=== PATIENT | female | born 1985 | race Caucasian/White ===

== ENCOUNTER 2024-06-02 14:36 | Outpatient (AMB) | payer BC, SELFPAY ==
--- NOTE | 2024-06-02 14:19 | A.OFFPC_ITS ---
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 Patient would like to discuss lack of sleeping and also has a concern for her anxiety. Brim Blocker Required: No Accompanied by: Self / Same As Patient Allergies No Known Allergies Allergy (Verified 06/02/24 15:08) Medication List - Last Reconciled 06/04/24 by Tracie Clinton MD clotrimazole-betamethasone 1-0.05 % 1 appl topical BID 2 weeks lorazepam (Ativan) 1 mg PO ONCE PRN 30 days nifedipine ER 60 mg PO DAILY omeprazole 20 mg PO DAILY phentermine 15 mg PO BID 90 days propranolol 10 mg PO TID PRN sulfamethoxazole-trimethoprim 800-160 mg (Bactrim DS) 1 tab PO BID Tobacco use date assessed: 06/02/24 Dental Screening Dental Screen Date: 06/02/24 Did you have a dental visit in the last 12 months?: No Did you have a dental problem in the last 6 months where you did not have access to dental care?: No Was dental information given to patient?: Yes HPI HPI Comments History of Present Illness Details 39 year old female with past medical his tory of hypertension, hyperlipidemia, hyperglycemia, anxiety, sciatica presenting for physical exam. CV: On nifedipine 30mg daily. Denies headaches, dizziness, vision change. Denies lower extremity swelling BH: Anxiety. Her mother in law is no longer living with them. 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 She is going to return to work. She continues to have anxiety, mostly at night which prevents her from sleeping. Says her social anxiety has been very notable recently Recurrent issues with frequent ear infections, pressure. 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 She did not want to follow up with genetic Obesity: has done well with phentermine ROS see HPI PHYSICAL EXAM: GENERAL: Alert and oriented x 3. NAD EYES: EOMI. Anicteric. HENT: Moist mucous membranes. No scleral icterus. No cervical lymphadenopathy. LUNGS: Clear to auscultation bilaterally. CARDIOVASCULAR: Regular rate and rhythm. No murmur. No JVD. ABDOMEN: Soft, non-tender +bs EXTREMITIES: No edema. Non-tender. SKIN: No rashes or lesions. Warm. NEUROLOGIC: No focal neurological deficits. CN II-XII grossly intact PSYCHIATRIC: Cooperative. Appropriate mood and affect [facility] Medical History (Updated 06/04/24 @ 09:12 by Tracie Clinton MD) Weight gain Stress Obesity, Class I, BMI 30-34.9 Hyperlipidemia HTN (hypertension) Elevated glucose Surgical History Hx of tonsillectomy Family History Father Hx of CABG Maternal Grandmother Breast cancer Maternal Grandmother Lung cancer Maternal Grandfather Lung cancer Social History Household Members: Spouse Housing: House (spouse) 75 years or older and lives alone: No Alcohol intake: current Alcohol intake frequency: a few times a month Alcohol type: beer, wine and hard liquor Patient Tobacco Use Status: Former Tobacco user Tobacco use type: Cigarette e-Cigarette/Vaping Use: Never Used Use of substances other than those prescribed or required for medical reasons: No Substance Use Type: Marijuana Have you been hit, kicked, punched, or otherwise hurt by someone within the past year? If so, by whom?: No Do you feel safe in your current relationship?: Yes Is there a partner from a previous relationship who is making you feel unsafe now?: No Are you made to feel afraid or neglected: No service: No Current occupational status: unemployed Cognitive needs: No Hearing needs: No Vision needs: No Questionnaire PHQ-9 Over the last 2 weeks, how often have you been bothered by any of the following problems? 1. Little interest or pleasure in doing things: not at all 2. Feeling down, depressed, or hopeless: not at all 3. Trouble falling or staying asleep, or sleeping too much: more than half the days 4. Feeling tired or having little energy: not at all 5. Poor appetite or overeating: not at all 6. Feeling bad about yourself - or that you are a failure or have let yourself or your family down: not at all 7. Trouble concentrating on things, such as reading the newspaper or watching television: not at all 8. Moving or speaking so slowly that other people could have noticed. Or the opposite - being so fidgety or restless that you have been moving around a lot more than usual: not at all 9. Thoughts that you would be better off or of hurting yourself in some way: not at all Total score: 2 Depression Screening Interpretation: Negative (NEG) Depression Screening Done: Yes 94124 - PHQ-9 Billing: Yes Source: Developed by Drs. Keith Sloan, Constance Mauro, Mark Cedeño and colleagues, with an educational briana from [employer]. Thrive Questionnaire Date Thrive assessed: 06/02/24 I am a: Patient What is your living situation today?: I have a steady place to live Within the past 12 months, did the food you bought not last and you didn't have the money to get more?: Never true Within the past 12 months, did you worry whether your food would run out before you got money to buy more?: Never true Do you have trouble paying for medicines?: No Do you have trouble getting transportation to medical appointments?: No Do you have trouble paying your heating and electricity bill?: No Do you have trouble taking care of your child, family member or friend?: No Do you have trouble with day-to-day activities such as bathing, preparing meals, shopping, managing finances, etc.?: No Are you currently unemployed and looking for a job?: No Are you interested in more education?: No Please select the resources that you would like help with: None Currently or been in a relationship where the following occur: No concerns reported THRIVE Score: 0 SPENCER-7 AMB Questionnaire SPENCER-7 Date SPENCER - 7 assessed: 06/02/24 Feeling nervous, anxious, or on edge: 2 = More than half the days Not being able to stop or control worryin = Not at all Worrying too much about different things: 0 = Not at all Trouble relaxin = Not at all Being so restless that it is hard to sit still: 0 = Not at all Becoming easily annoyed or irritable: 0 = Not at all Feeling afraid as if something awful might happen: 0 = Not at all Total SPENCER-7 score (0-4 normal; 5-9 mild; 10-14 moderate; 15-21 severe): 2 Source: Developed by Drs. Keith Sloan, Constance Mauro, Mark Cedeño and colleagues, with an educational briana from [employer]. SPENCER-7 Assessment Billing SPENCER-7 Assessment Tool: SPENCER-7 Assessment 41596 Physical exam (Primary Care) Vital Signs: Last Vital Signs Pulse 105 H 06/02/24 15:02 BP 136/86 06/02/24 15:02 Pulse Ox 98 06/02/24 15:02 Oxygen Delivery Method Room Air 06/02/24 15:02 BMI result Body Mass Index 32.1 Tobacco/Smoking Status: Tobacco use Status Tobacco use date assessed 06/02/24 06/02/24 15:15 Patient Tobacco Use Status Former Tobacco user 06/02/24 15:15 Tobacco use type Cigarette 06/02/24 15:15 e-Cigarette/Vaping Use Never Used 06/02/24 15:15 PHQ-9: PHQ-9 Score PHQ-9: Total score 2 06/04/24 09:12 Depression Screening Interpretation: Negative (NEG) Thrive Assessment: Date of Thrive Assessment Date Thrive assessed 06/02/24 06/02/24 15:18 Currently or been in a relationship where the following occur: No concerns reported Assessment and Plan Assessment & Plan (1) Physical exam: Comment: Preventive measures appropriate for age reviewed Code(s): Z00.00 - Encounter for general adult medical examination without abnormal findings (2) HTN (hypertension): Code(s): I10 - Essential (primary) hypertension Qualifiers: Hypertension type: primary hypertension Qualified Code(s): I10 - Essential (primary) hypertension (3) Hyperlipidemia: Code(s): E78.5 - Hyperlipidemia, unspecified Qualifiers: Hyperlipidemia type: mixed hyperlipidemia Qualified Code(s): E78.2 - Mixed hyperlipidemia (4) Elevated glucose: Code(s): R73.09 - Other abnormal glucose Orders: Referrals Dermatology Referral L91.8 - Other hypertrophic disorders of the skin Ear/Nose/Throat Referral H66.90 - Otitis media, unspecified, unspecified ear Medications: New clotrimazole-betamethasone 1-0.05 % 1 appl topical BID 45 grams 0RF 2 weeks omeprazole 20 mg PO DAILY 90 caps 3RF sulfamethoxazole-trimethoprim 800-160 mg (Bactrim DS) 1 tab PO BID 14 tabs 0RF nifedipine ER 60 mg PO DAILY 90 tabs 3RF propranolol 10 mg PO TID PRN 90 tabs 3RF social anxiety lorazepam (Ativan) 1 mg PO ONCE PRN 30 tabs 0RF anxiety 30 days Refilled phentermine must administer 2 hours after breakfast 15 mg PO BID 180 caps 0RF 90 days Coding Level of Care Code Est Pt Level 4 (67987) Est Pt Prev Care 40-64y(49652) Diagnoses Physical exam Z00.00 Primary hypertension I10 Hypertension type: primary hypertension Mixed hyperlipidemia E78.2 Hyperlipidemia type: mixed hyperlipidemia Elevated glucose R73.09 Additional Codes SPENCER-7 Assessment Billing - SPENCER-7 Assessment Tool: SPENCER-7 Assessment 47755 ([id number])
[2024-06-02 15:02] VITALS: BP 136/86; PULSE 105; O2SAT 98; BMI 32.1
== END 2024-06-02 17:01 | disposition home or self-care (01) ==
PROVIDERS: PCP Internal Medicine; Visit Provider Internal Medicine
DX: Z00.00 Encounter for general adult medical examination without abnormal findings (principal); I10 Essential (primary) hypertension; E78.2 Mixed hyperlipidemia; R73.09 Other abnormal glucose
CPT/HCPCS: 99386; 99396

== ENCOUNTER → 2024-12-08 08:54 | Outpatient (BNVA) | payer BC, SELFPAY | PROVIDERS: PCP Internal Medicine; Visit Provider Internal Medicine | DX: I10 Essential (primary) hypertension (principal); E78.2 Mixed hyperlipidemia | CPT/HCPCS: 96127 ==

== ENCOUNTER 2025-05-02 10:54 | Outpatient (AMB) | payer BC, SELFPAY ==
--- NOTE | 2025-05-02 11:03 | A.OFFPC_ITS ---
Vital Signs 05/02/25 11:05 05/02/25 11:11 Height 4 ft 11 in Weight 160 lb 2 oz BMI 32.3 BP 126/100 H 124/98 H Blood Pressure Location Lt brachial Lt brachial Position Sitting Sitting Respiration 14 Pulse 91 Pulse Source Pulse Oximeter Temp 99 F Temp Source Oral Pulse Oximetry (%) 98 Oxygen Delivery Method Room Air Intake Visit Reasons: ED Follow-up /Felix Intake Note: Emergency room follow up Allergies No Known Allergies Allergy (Verified 05/02/25 11:03) Medication List - Last Reconciled 05/02/25 by Yoana Whitt PA-C lorazepam (Ativan) 1 mg PO DAILY PRN 10 days multivitamin 1 tab PO DAILY nifedipine ER 60 mg PO DAILY omeprazole 20 mg PO DAILY phentermine 15 mg PO BID 90 days propranolol 10 mg PO TID PRN temazepam 15 mg (2 x 7.5 mg) PO BEDTIME PRN Tobacco use date assessed: 05/02/25 Dental Screening Dental Screen Date: 06/02/24 Did you have a dental visit in the last 12 months?: No Did you have a dental problem in the last 6 months where you did not have access to dental care?: No Was dental information given to patient?: Patient declined HPI ED Follow-up /Felix HPI Details Patient is a 40-year-old female with past medical history of hypertension, hyperlipidemia, hyperglycemia, anxiety, sciatica presenting for an ER follow up. On 04/30/2025 she presented to the emergency room with 3 hours of severe abd ominal pain. She says that the pain had woke her up in it was about a 9/10. The pain was so severe it made her feel lightheaded and nauseous. . -She had a CT of the abdomen and pelvis which was overall unremarkable however she did have a left corpus luteal cyst measuring 1 cm, multiple physiologic cysts within the right ovary and trace pelvic fluid. She was noted to have a large stool burden within the colon. No obstruction or lymphadenopathy. -She had an upper abdominal ultrasound w [facility] did show mildly echogenic liver likely representing fatty liver. She was also noted to have cholelithiasis but no evidence of acute cholecystitis. -Her CMP did show a mildly elevated ALT at 53 and mild hypokalemia at 3.3 otherwise WNL. CBC was unremarkable. She had slight bacteria noted on her UA but had a negative culture. She was discharged from the ER and recommended to follow up with OBGYN and PCP for possible referral to General surgery regarding the cholelithiasis. She states today that she is still having significant right-sided abdominal pain. It is not worse with eating but it has decreased her appetite because she is at times nauseous with this. She states that movement and touching her upper abdomen causes pain. She is not having any back pain and has not noticed any rashes. She states that this pain is just making her very uncomfortable. She has not vomited and denies any diarrhea. She states that at the ER they did tell her she was a little constipated but she is still having regular bowel movements. No improvement of pain with bowel movements. Pain is constantly there but exacerbated with certain positions. She has not eaten any foods with fat and then because she is terrified of making this worse. Denies prior abdominal surgeries, recent travel, recent antibiotic use. CV: On nifedipine 60mg daily. Blood pressure today elevated at 124/98. She states that she is also on propranolol as needed and this abdominal pain is increasing her anxiety. She states that when she takes it propranolol her blood pressure does improve. She has a cuff at home and states that she is going to monitor it. She forgot to take nifedipine yesterday and today. Denies headaches, dizziness, vision change. 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 [facility] Medical History (Updated 05/02/25 @ 11:25 by Yoana Whitt PA-C) Weight gain Stress Obesity, Class I, BMI 30-34.9 Hyperlipidemia HTN (hypertension) Elevated glucose Surgical History Hx of tonsillectomy Family History Father Hx of CABG Maternal Grandmother Breast cancer Maternal Grandmother Lung cancer Maternal Grandfather Lung cancer Social History (Updated 05/02/25 @ 11:13 by Julissa Castillo CMA) Household Members: Spouse Housing: House (spouse) Alcohol intake: current Alcohol intake frequency: a few times a month Alcohol type: beer, wine and hard liquor Patient Tobacco Use Status: Former Tobacco user Tobacco use type: Cigarette e-Cigarette/Vaping Use: Never Used Substance Use Type: Marijuana service: No Current occupational status: unemployed Cognitive needs: No Hearing needs: No Vision needs: No Questionnaire Thrive Questionnaire Date Thrive assessed: 12/03/24 I am a: Patient What is your living situation today?: I have a steady place to live Within the past 12 months, did the food you bought not last and you didn't have the money to get more?: Never true Within the past 12 months, did you worry whether your food would run out before you got money to buy more?: Never true Do you have trouble paying for medicines?: No Do you have trouble getting transportation to medical appointments?: No Do you have trouble paying your heating and electricity bill?: No Do you have trouble taking care of your child, family member or friend?: No Do you have trouble with day-to-day activities such as bathing, preparing meals, shopping, managing finances, etc.?: No Are you currently unemployed and looking for a job?: No Are you interested in more education?: No Please select the resources that you would like help with: None Currently or been in a relationship where the following occur: No concerns reported THRIVE Score: 0 AUDIT C Alcohol Use Questionnaire (AUDIT-C) 1. How often do you have a drink containing alcohol?: 2-3 times a week 2. How many drinks containing alcohol do you have on a typical day when you are drinking?: 1 or 2 3. How often do you have six or more drinks on one occasion?: Never Total Score: 3 SPENCER-7 AMB Questionnaire SPENCER-7 Date SPENCER - 7 assessed: 06/02/24 Source: Developed by Drs. Keith Sloan, Constance Mauro, Mark Cedeño and colleagues, with an educational briana from [employer]. Physical exam (Primary Care) Vital Signs: Last Vital Signs Temp 99 F 05/02/25 11:05 Pulse 91 05/02/25 11:05 Resp 14 05/02/25 11:05 BP 124/98 H 05/02/25 11:11 Pulse Ox 98 05/02/25 11:05 Oxygen Delivery Method Room Air 05/02/25 11:05 BMI result Body Mass Index 32.3 Tobacco/Smoking Status: Tobacco use Status Tobacco use date assessed 05/02/25 05/02/25 11:10 Patient Tobacco Use Status Former Tobacco user 05/02/25 11:13 Tobacco use type Cigarette 05/02/25 11:13 e-Cigarette/Vaping Use Never Used 05/02/25 11:13 Thrive Assessment: Date of Thrive Assessment Date Thrive assessed 12/03/24 05/02/25 11:03 Currently or been in a relationship where the following occur: No concerns reported Const Orientation/consciousness: patient oriented x3 HENMT Ears: hearing grossly normal bilaterally Neck Thyroid: Thyroid normal Lymphatic: no lymphadenopathy noted Resp Auscultation: clear to auscultation bilaterally Cardio Rate: regular rate Rhythm: regular rhythm Heart sounds: S1 normal heart sound present and S2 normal heart sound present GI Inspection: Yes normal to inspection Palpation (GI): Soft to palpation, Tenderness to palpation present (GI) in the RLQ and in the RUQ, Guarding due to palpation present (GI) in the RUQ and No Rebound tenderness present Auscultation: normoactive bowel sounds Rectal Exam - Female: deferred General: Yes no CVA tenderness Back/Spine/Pelvis Back: no CVA tenderness Skin General skin exam: no rashes or lesions noted Neuro General: patient oriented x3, gait normal and no focal motor deficits Coding Level of Care Code Est Pt Level 4 (06690) Complex EM visit Add On G2211 Diagnoses Cholelithiasis K80.20 Ovarian cyst N83.209 Elevated LFTs R79.89 RUQ abdominal pain R10.11 Primary hypertension I10 Hypertension type: primary hypertension Assessment & Plan Assessment & Plan (1) Cholelithiasis: Code(s): K80.20 - Calculus of gallbladder without cholecystitis without obstruction Category: Medical Plan: Urgent referral to General surgery (2) Ovarian cyst: Code(s): N83.209 - Unspecified ovarian cyst, unspecified side Category: Medical Plan: Following with gynecology (3) Elevated LFTs: Code(s): R79.89 - Other specified abnormal findings of blood chemistry Plan: We will recheck labs today (4) RUQ abdominal pain: Code(s): R10.11 - Right upper quadrant pain Category: Medical Plan: As listed above. Warning signs of abdominal pain that would require emergent medical treatment were discussed. Advised patient that if she worsens she should go back to the emergency room. (5) HTN (hypertension): Code(s): I10 - Essential (primary) hypertension Category: Medical Qualifiers: Hypertension type: primary hypertension Qualified Code(s): I10 - Essential (primary) hypertension Plan: Advised to take the nifedipine as directed and monitor blood pressures. She will let me know how they look the next few days. Orders: Orders Hepatitis C Antibody Today K80.20 - Calculus of gallbladder without cholecystitis without obstruction, N83.209 - Unspecified ovarian cyst, unspecified side, R79.89 - Other specified abnormal findings of blood chemistry Basic Metabolic Panel Today K80.20 - Calculus of gallbladder without cholecystitis without obstruction, N83.209 - Unspecified ovarian cyst, unspecified side Complete Blood Count Auto Diff Today K80.20 - Calculus of gallbladder without cholecystitis without obstruction, N83.209 - Unspecified ovarian cyst, unspecified side, R79.89 - Other specified abnormal findings of blood chemistry Hemoglobin A1c Today K80.20 - Calculus of gallbladder without cholecystitis without obstruction, N83.209 - Unspecified ovarian cyst, unspecified side, R73.01 - Impaired fasting glucose, R79.89 - Other specified abnormal findings of blood chemistry Liver Panel Today K80.20 - Calculus of gallbladder without cholecystitis without obstruction, N83.209 - Unspecified ovarian cyst, unspecified side, R79.89 - Other specified abnormal findings of blood chemistry Gamma Glutamyl Transpeptidase Today K80.20 - Calculus of gallbladder without cholecystitis without obstruction, N83.209 - Unspecified ovarian cyst, unspecified side, R79.89 - Other specified abnormal findings of blood chemistry Hepatitis B Surface Antigen Today K80.20 - Calculus of gallbladder without cholecystitis without obstruction, N83.209 - Unspecified ovarian cyst, unspec ified side, R79.89 - Other specified abnormal findings of blood chemistry Lipase Today R10.11 - Right upper quadrant pain Referrals General Surgery Referral K80.20 - Calculus of gallbladder without cholecystitis without obstruction Medications: New polyethylene glycol 3350 (Miralax) 17 grams PO BID PRN 238 grams 0RF constipation
[2025-05-02 11:05] VITALS: BP 126/100; PULSE 91; RESP 14; TEMP 37.2; O2SAT 98; BMI 32.3
[2025-05-02 11:11] VITALS: BP 124/98
== END 2025-05-02 11:36 | disposition home or self-care (01) ==
LOC: HO.HMCFM 10:54
PROVIDERS: PCP Internal Medicine; Visit Provider Physician Assistant
DX: K80.20 Calculus of gallbladder without cholecystitis without obstruction (principal); N83.209 Unspecified ovarian cyst, unspecified side; R79.89 Other specified abnormal findings of blood chemistry; R10.11 Right upper quadrant pain; I10 Essential (primary) hypertension

== ENCOUNTER 2025-05-02 11:29 | Outpatient (REF) | payer BC, SELFPAY ==
[2025-05-02 14:22] LABS: MANUAL DIFF FLAG NO
[2025-05-02 14:29] LABS: Basophils Percent Auto 0.7 % (0-2); Eosinophils Absolute Auto 0.1 X10*3/uL (0.0-0.4); Hematocrit 39.6 % (37.0-47.0); Imm Gran Abs Auto 0.01 X10*3/uL (0.00-0.03); Imm Gran Pct Auto 0.2 % (0.0-0.4); Lymphocytes Absolute Auto 2.2 X10*3/uL (1.2-4.9); Lymphocytes Percent Auto 35.7 % (20-40); Mean Corpuscular HGB Conc 32.8 g/dl (31.0-35.0); Mean Corpuscular Hemoglobin 29.8 pg (27.0-33.0); Mean Corpuscular Volume 90.8 fL (80.0-98.0); Mean Platelet Volume 12.2 fL (9.4-12.3); Monocytes Absolute Auto 0.5 X10*3/uL (0.1-1.2); Monocytes Percent Auto 7.5 % (2-11); Neutrophils Absolute Auto 3.3 x10*3/uL (2.0-8.3); Neutrophils Percent Auto 54.9 % (45-73); Platelet Count 229 X10*3/uL (160-400); Red Blood Count 4.36 X10*6/uL (4.20-5.50); Red Cell Distribution Width 12.3 % (11.0-16.0)
[2025-05-02 14:33] LABS: Estimated Average Glucose 97 mg/dL; Total Hemoglobin (HGBA1C) 3494.8521 umol/L
[2025-05-02 14:43] LABS: Alanine Aminotransferase 51 U/L (0-31); Albumin Level 3.9 g/dL (3.5-5.0); Alkaline Phosphatase 43 U/L (39-117); Anion Gap 10 (12-20); Aspartate Amino Transferase 32 U/L (5-31); Bilirubin Direct < 0.2 mg/dL (0.0-0.5); Bilirubin Total 0.1 mg/dL (0.0-1.0); Blood Urea Nitrogen 14 mg/dL (9-16); Calcium 8.8 mg/dL (8.4-10.2); Carbon Dioxide 28 mmol/L (22-29); Chloride 108 mmol/L (96-108); Estimated Glomerular Filt Rate > 60; Gamma Glutamyl Transpeptidase 87 U/L (7-33); Glucose Random 111 mg/dL (60-115); Lipase 28 U/L (8-78); Potassium 3.5 mmol/L (3.3-5.1); Sodium 142 mmol/L (135-145); Total Protein 6.2 g/dL (6.5-8.0)
[2025-05-03 08:36] LABS: HBsAGNum1 0.33 S/CO (0.00-0.99); Hepatitis B Surface Antigen Negative (Negative); ~HepC Num1 0.09 S/CO (0.00-0.79); ~Hepatitis C Antibody Nonreactive (Nonreactive)
== END 2025-05-02 11:30 | disposition home or self-care (01) ==
LOC: HO.WFDLDS 11:29
PROVIDERS: Visit Provider Physician Assistant
DX: R10.11 Right upper quadrant pain (principal); R73.01 Impaired fasting glucose; R79.89 Other specified abnormal findings of blood chemistry; N83.209 Unspecified ovarian cyst, unspecified side; K80.20 Calculus of gallbladder without cholecystitis without obstruction
CPT/HCPCS: 36415; 80048; 80076; 82977; 83036; 83690; 85025; 86803; 87340

== ENCOUNTER 2025-05-21 15:00 | Outpatient (AMB) | payer BC, SELFPAY ==
--- NOTE | 2025-05-21 15:03 | MHC.OFFVIS ---
Vital Signs 05/21/25 15:09 Height 4 ft 11 in Weight 158 lb 8 oz BMI 32.0 BP 131/83 Blood Pressure Location Lt brachial Position Sitting Pulse 92 Intake Visit Reasons: Calculus of gallbladder Intake Note: Patient is seen in office for evaluation of the gallbladder. 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 She had been having this mild right upper quadrant pain on and off for about 1 to 2 months now. She says that once in a while she would have some nausea and vomiting as well. She says the pain would be low-grade. She was seen by primary care physician and was sent for imaging studies which were done in [facility]. Her ultrasound showed gallstones with cholecystitis. This was not seen on her CAT scan. She says that she continues to have this periodic right upper quadrant pain although mild but she wants to proceed with cholecystectomy. ON LICENSE OF [facility] Medical History Gallstones Weight gain Stress Obesity, Class I, BMI 30-34.9 Hyperlipidemia HTN (hypertension) Elevated glucose Surgical History Hx of tonsillectomy Family History Father Hx of CABG Maternal Grandmother Breast cancer Maternal Grandmother Lung cancer Maternal Grandfather Lung cancer Social History Household Members: Spouse Housing: House (spouse) 75 years or older and lives alone: No Alcohol intake: current Alcohol intake frequency: a few times a month Alcohol type: beer, wine and hard liquor Patient Tobacco Use Status: Former Tobacco user Tobacco use type: Cigarette e-Cigarette/Vaping Use: Never Used Substance Use Type: Marijuana service: No Current occupational status: unemployed Cognitive needs: No Hearing needs: No Vision needs: No Review of Systems Const Denies chills and Denies fever(s) Card Denies chest pain, Denies dyspnea and Denies dyspnea on exertion Resp Denies cough, Denies dyspnea and Denies dyspnea on exertion GI Denies hematochezia and Denies change in bowel habits Denies hematuria Musc Denies back pain and Denies limited range of motion Neuro Denies focal weakness and Denies convulsions Psych Denies depression and Denies mood swings Physical Exam Vital Signs: Last Vital Signs Pulse 92 05/21/25 15:09 BP 131/83 05/21/25 15:09 BMI result Body Mass Index 32.0 Const General: comfortable and no acute distress Nutritional Appearance: overweight Orientation/consciousness: patient oriented x3 Neck Neck: Yes no lymphadenopathy Resp Auscultation: clear to auscultation bilaterally Cardio Rhythm: regular rhythm GI Palpation (GI): Soft to palpation, nontender and no guarding Neuro General: patient oriented x3 Assessment & Plan Assessment & Plan (1) Gallstones: Code(s): K80.20 - Calculus of gallbladder without cholecystitis without obstruction Category: Medical Plan: She describes this periodic right upper quadrant pain. She also says that once in a while she will feel nauseous. Her ultrasound from [facility] shows gallstones without cholecystitis. Her symptoms may be explained by this gallstones. I explained the technique of laparoscopic cholecystectomy and possible open cholecystectomy. I reviewed the risks including but not limited to bleeding, infections, injury to other organs including bowel, liver and the bile ducts, retained stones, bile leak, as well as the benefits and alternatives. I also explained to her what to expect postoperatively. She understands and wants to proceed. I am also going to retrieve her imaging studies from [facility] so we can review this. Coding Level of Care Code New Pt Level 3 (28934) Diagnoses Gallstones K80.20
[2025-05-21 15:09] VITALS: BP 131/83; PULSE 92; BMI 32.0
== END 2025-05-21 15:31 | disposition home or self-care (01) ==
LOC: HO.HGS 15:02
PROVIDERS: PCP Internal Medicine; Visit Provider Surgery
DX: K80.20 Calculus of gallbladder without cholecystitis without obstruction (principal)
CPT/HCPCS: 99203

== ENCOUNTER 2025-07-03 09:27 | Day surgery (SDC) | payer BC, SELFPAY ==
[2025-06-29 09:25] VITALS: BMI 31.9
--- NOTE | 2025-07-02 07:54 | HO.ANESPROP2 ---
Documented by User: Cat Kelley NP 07/02/25 07:55 HPI - Anesthesia Eval Consult details Narrative: 40 yr old female for Cholecystectomy Laparoscopic,possible open PMFSH Active Problems Active Problems: All Active Problems Gallstones (Acute) RUQ abdominal pain (Acute) Ovarian cyst (Acute) Cholelithiasis (Acute) Eye exam, routine (Acute) Cervical cancer screening (Acute) Recurrent otitis media (Acute) Skin tag (Acute) Elevated glucose (Acute) Hyperlipidemia (Acute) HTN (hypertension) (Acute) Physical exam (Acute) Past Medical History Medical History GERD (gastroesophageal reflux disease) Gallstones Weight gain Stress Obesity, Class I, BMI 30-34.9 Hyperlipidemia HTN (hypertension) Elevated glucose Family History Family History Father Hx of CABG Maternal Grandmother Breast cancer Maternal Grandmother Lung cancer Maternal Grandfather Lung cancer Surgical History Surgical History Hx of tonsillectomy Social History Social History Household Members: Spouse Housing: House (spouse) Alcohol intake: current Alcohol intake frequency: a few times a month Alcohol type: beer, wine and hard liquor Patient Tobacco Use Status: Former Tobacco user Tobacco use type: Cigarette e-Cigarette/Vaping Use: Never Used Use of substances other than those prescribed or required for medical reasons: No Substance Use Type: Marijuana Are you DNR?: No Advance Directives: No Advance Directives Information Provided: Yes service: No Current occupational status: unemployed Cognitive needs: No Hearing needs: No Vision needs: No Meds Allergies Allergy/AdvReac Type Severity Reaction Status Date / Time No Known Allergies Allergy Verified 07/03/25 09:50 Home Medications ?Medication ?Instructions ?Recorded ?Confirmed ?Last Taken ?Type multivitamin 1 tab PO DAILY 05/02/25 07/03/25 Unknown History Exam Height,Weight and Vital Signs: Height 4 ft 11 in Weight 71.668 kg Pertinent Lab Results Pertinent Lab Results: Laboratory Tests 05/02/25 11:32 WBC 6.0 RBC 4.36 Hgb 13.0 Hct 39.6 Plt Count 229 Sodium 142 Potassium 3.5 BUN 14 Creatinine 0.55 Documented by User: Josias Hurd MD 07/03/25 11:46 [facility] Past Medical History Medical History GERD (gastroesophageal reflux disease) Gallstones Weight gain Stress Obesity, Class I, BMI 30-34.9 Hyperlipidemia HTN (hypertension) Elevated glucose Functional capacity: independent ambulation Family History Family History Father Hx of CABG Maternal Grandmother Breast cancer Maternal Grandmother Lung cancer Maternal Grandfather Lung cancer Family history of problems with anesthesia: No Surgical History Surgical History Hx of tonsillectomy History of Problems with Anesthesia: No Social History Social History Household Members: Spouse Housing: House (spouse) Alcohol intake: current Alcohol intake frequency: a few times a month Alcohol type: beer, wine and hard liquor Patient Tobacco Use Status: Former Tobacco user Tobacco use type: Cigarette e-Cigarette/Vaping Use: Never Used Use of substances other than those prescribed or required for medical reasons: No Substance Use Type: Marijuana Are you DNR?: No Advance Directives: No Advance Directives Information Provided: Yes service: No Current occupational status: unemployed Cognitive needs: No Hearing needs: No Vision needs: No Meds Allergies Allergy/AdvReac Type Severity Reaction Status Date / Time No Known Allergies Allergy Verified 07/03/25 09:50 Home Medications ?Medication ?Instructions ?Recorded ?Confirmed ?Last Taken ?Type multivitamin 1 tab PO DAILY 05/02/25 07/03/25 Unknown History Exam Exam Date and Time: 07/03/2025 Airway Mallampati Class: II Heart: rrr Lungs: cta Other: normal Assessment and Plan Assessment Anesthesia Assessment: Anesthesia Plan Discussed Final Anesthetic Review Family History of Problems with Anesthesia: No History of Problems with Anesthesia: No NPO: Yes ASA Class: II Final Preanesthetic Review: No Changes in Pt Med Stat, Meds/Allgs Chart Reviewed, Consent Obtained/Reviewed and Anes Risks/Benef Reviewed Patient Risk: Low Procedure Risk: Low Anesthetic Plan Anesthetic Plan: GA Disposition: Standard PACU
[2025-07-03] VITALS (12 sets, daily range): BP systolic 106–149; BP diastolic 63–94; PULSE 77–90; RESP 10–16; TEMP 36.1–36.6; O2SAT 88–100; BMI 31.5
[2025-07-03 10:11] LABS: UPreg QC Valid YES
[2025-07-03] MEDS: Lactated Ringers 1,000 ML 100 ML IVCONT (10:12)
--- NOTE | 2025-07-03 11:37 | MHC.SHP ---
Pre-Procedural Eval Section A - 24 Hr Update-Section A only Date of Service: 07/03/25 Section B - Complete if H&P > 30 days Chief Complaint: Calculus of gallbladder without cholecystitis Details of Present Illness: Has had symptomatic gallstones, and wants to proceed with cholecystectomy Relevant Family History (Specify if Yes): No Relevant Social History: None Present Medications: see Short Stay Collaborative assessment Medical History: Significant History (Hypertension, hyperlipidemia) Allergies: Allergies Allergy/AdvReac Type Severity Reaction Status Date / Time No Known Allergies Allergy Verified 07/03/25 09:50 Review of Systems Sugical H&P ROS: Negative: Constitution, Cardiovascular, Respiratory, Gastrointestinal and Genitourinary Exam Surgical H&P Exam: Normal: Heart, Normal: Lungs and Normal: Abdomen Plan Diagnosis/Plan: Unchanged I have reviewed the history and physical and performed a pertinent physical examination on my patient. No changes have occurred unless specified. Time Spent With Patient Time: Total time managing care of this patient today ____ minutes.
--- NOTE | 2025-07-03 13:14 | PM.EVENT ---
Event Note Date of Service: 07/03/25 Event Note: The patient had difficulty with maintaining O2 sats after induction Anesthesiologist could not intubate Patient was on LMA for rescue breathing, and was Ambu bag for several minutes until she woke up Currently alert and with good O2 sats via face mask Procedure is canceled Patient transferred to the recovery room to be monitored prior to discharge updated Time Spent With Patient Time: Total time managing care of this patient today ____ minutes.
[2025-07-03] MEDS: Albuterol/Iprat 2.5/0.5MG 3 ML AMPUL.NEB INHALE (13:56)
--- NOTE | 2025-07-04 14:18 | HO.ANESEVENT ---
Anesthesia Event Note Date of Service: 07/06/25 Event Note: hpkaty in r the oprating room Time Spent With Patient Time: Total time managing care of this patient today __120__ minutes.
--- NOTE | 2025-07-04 14:37 | HO.ANESEVENT ---
Anesthesia Event Note Date of Service: 07/04/25 Event Note: patient presents for cholecystectomy. Pre O2; Smooth induction, Easy mask. DL times 1 unable to pass tube. DL with video laryngoscope unable to intubate. patient starts desaturating able to mask ventilate. patient was in broncosasm. improved with adrenaline. Neuro muscular blockade was reversed. At this stage i already decided no more attempts to intubate. we woke up the patient. i thoroughly explained what happened to the patient. she understood. I told her being an elective surgery we will prepare for difficult intubation. optimize the pulmonary status pre induction. patient was kept in the PACU 2 hours. I checked on her multiple times her sats were over 98% on room air. Patient was discharged . Surgery was cancelled can be done on a future date Time Spent With Patient Time: Total time managing care of this patient today ____ minutes.
== END 2025-07-03 15:45 | disposition home or self-care (01) ==
PROVIDERS: Nurse Practitioner; PCP Internal Medicine; Visit Provider Surgery
PROC: 0FT44ZZ Resection of Gallbladder, Percutaneous Endoscopic Approach (ICD-10-PCS; CPT 47562; principal; 2025-07-03 12:30)
DX: T88.4XXA Failed or difficult intubation, initial encounter (principal); Y70.0 Diagnostic and monitoring anesthesiology devices associated with adverse incidents; Z53.09 Procedure and treatment not carried out because of other contraindication; R09.02 Hypoxemia; K80.10 Calculus of gallbladder with chronic cholecystitis without obstruction; R10.11 Right upper quadrant pain; I10 Essential (primary) hypertension; E78.5 Hyperlipidemia, unspecified; R73.09 Other abnormal glucose; E66.811 Obesity, class 1; Z68.32 Body mass index [BMI] 32.0-32.9, adult; Z79.899 Other long term (current) drug therapy; Z87.891 Personal history of nicotine dependence
CPT/HCPCS: 47562; 81025; 99499; J0131; J2250; J2704; J2795; J3010

== ENCOUNTER 2025-07-20 07:28 | Day surgery (SDC) | payer BC, SELFPAY ==
[2025-07-18 12:40] VITALS: BMI 31.3
--- NOTE | 2025-07-19 10:05 | P.CONAN_ITS ---
Documented by User: Claribel Valera NP 07/19/25 10:07 HPI - Anesthesia Eval Consult details Narrative: 40yo F for Cholecystectomy Laparoscopic,possible open 07/03/25: unable to intubate and lap dionne postponed PMFSH Active Problems Active Problems: All Active Problems RUQ abdominal pain (Acute) Ovarian cyst (Acute) Cholelithiasis (Acute) Eye exam, routine (Acute) Cervical cancer screening (Acute) Recurrent otitis media (Acute) Skin tag (Acute) Physical exam (Acute) Gallstones (Acute) Elevated glucose (Acute) Hyperlipidemia (Acute) HTN (hypertension) (Acute) Past Medical History Medical History Bronchospasm (07/03/25) GERD (gastroesophageal reflux disease) Gallstones Weight gain Stress Obesity, Class I, BMI 30-34.9 Hyperlipidemia HTN (hypertension) Elevated glucose Family History Family History Father Hx of CABG Maternal Grandmother Breast cancer Maternal Grandmother Lung cancer Maternal Grandfather Lung cancer Family history of problems with anesthesia: No Surgical History Surgical History Hx of tonsillectomy History of Problems with Anesthesia: No Social History Social History Household Members: Spouse Housing: House (spouse) Are you a primary home care liaison to a significant other at home: No Do you presently have visiting nurse or other home services: No Alcohol intake: current Alcohol intake frequency: a few times a month Alcohol type: beer, wine and hard liquor Patient Tobacco Use Status: Former Tobacco user Tobacco use type: Cigarette Smoked in Last 30 Days: No e-Cigarette/Vaping Use: Never Used Use of substances other than those prescribed or required for medical reasons: No Substance Use Type: Marijuana Have you been hit, kicked, punched, or otherwise hurt by someone within the past year? If so, by whom?: No Are you DNR?: No Advance Directives: No Advance Directives Information Provided: Yes Advance Directives on File: No Patient : No FDLMP: 06/28/2025 : No Poor oral hygiene: No service: No Current occupational status: unemployed Cognitive needs: No Hearing needs: No Vision needs: No Meds Allergies Allergy/AdvReac Type Severity Reaction Status Date / Time No Known Allergies Allergy Verified 07/03/25 09:50 Home Medications ?Medication ?Instructions ?Recorded ?Confirmed ?Last Taken ?Type multivitamin 1 tab PO DAILY 05/02/25 09/0 04/0807/19/25 History Exam Height,Weight and Vital Signs: Height 4 ft 10 in Weight 68.039 kg Pertinent Lab Results Pertinent Lab Results: Laboratory Tests 05/02/25 11:32 WBC 6.0 Hgb 13.0 Hct 39.6 Plt Count 229 Sodium 142 Potassium 3.5 Chloride 108 Carbon Dioxide 28 BUN 14 Creatinine 0.55 Assessment and Plan Assessment Anesthesia Assessment: Chart Reviewed Final Anesthetic Review Family History of Problems with Anesthesia: No History of Problems with Anesthesia: No Documented by User: Josias Hurd MD 07/20/25 09:26 [facility] Past Medical History Medical History Bronchospasm (07/03/25) GERD (gastroesophageal reflux disease) Gallstones Weight gain Stress Obesity, Class I, BMI 30-34.9 Hyperlipidemia HTN (hypertension) Elevated glucose Functional capacity: independent ambulation Family History Family History Father Hx of CABG Maternal Grandmother Breast cancer Maternal Grandmother Lung cancer Maternal Grandfather Lung cancer Surgical History Surgical History Hx of tonsillectomy Social History Social History Household Members: Spouse Housing: House (spouse) Are you a primary home care liaison to a significant other at home: No Do you presently have visiting nurse or other home services: No Alcohol intake: current Alcohol intake frequency: a few times a month Alcohol type: beer, wine and hard liquor Patient Tobacco Use Status: Former Tobacco user Tobacco use type: Cigarette Smoked in Last 30 Days: No e-Cigarette/Vaping Use: Never Used Use of substances other than those prescribed or required for medical reasons: No Substance Use Type: Marijuana Have you been hit, kicked, punched, or otherwise hurt by someone within the past year? If so, by whom?: No Are you DNR?: No Advance Directives: No Advance Directives Information Provided: Yes Advance Directives on File: No Patient : No FDLMP: 06/28/2025 : No Poor oral hygiene: No service: No Current occupational status: unemployed Cognitive needs: No Hearing needs: No Vision needs: No Meds Allergies Allergy/AdvReac Type Severity Reaction Status Date / Time No Known Allergies Allergy Verified 07/03/25 09:50 Home Medications ?Medication ?Instructions ?Recorded ?Confirmed ?Last Taken ?Type multivitamin 1 tab PO DAILY 05/02/25 09/0 04/0807/19/25 History Exam Exam Date and Time: 07/20/2025 Narrative Narrative: normal Airway Mallampati Class: II TM Dist: <=3cm Neck ROM: Full Heart: rrr Lungs: cta Other: normal Assessment and Plan Final Anesthetic Review NPO: Yes ASA Class: II Final Preanesthetic Review: No Changes in Pt Med Stat, Consent Obtained/Reviewed and Anes Risks/Benef Reviewed Patient Risk: Low Procedure Risk: Low Anesthetic Plan Anesthetic Plan: GA Disposition: Standard PACU
[2025-07-20] VITALS (10 sets, daily range): BP systolic 103–156; BP diastolic 73–96; PULSE 52–93; RESP 16–18; TEMP 37; O2SAT 94–99; BMI 33.4
[2025-07-20] MEDS: Lactated Ringers 1,000 ML 100 ML IVCONT (07:59)
[2025-07-20 08:06] LABS: UPreg QC Valid YES
--- NOTE | 2025-07-20 09:16 | PC.NURSE ---
pt receieving resp tx at bedside
--- NOTE | 2025-07-20 09:18 | MHC.SHP ---
Pre-Procedural Eval Section A - 24 Hr Update-Section A only Date of Service: 07/20/25 Section B - Complete if H&P > 30 days Chief Complaint: Calculus of gallbladder without cholecystitis Details of Present Illness: She was in the OR for laparoscopic cholecystectomy last June 30 but the anesthesiologist had difficulty intubating so the procedure was canceled. She is here for laparoscopic cholecystectomy again with possible open for symptomatic gallstones. Relevant Family History (Specify if Yes): No Relevant Social History: None Present Medications: see Short Stay Collaborative assessment Medical History: Significant History (Hypertension, hyperlipidemia) Allergies: Allergies Allergy/AdvReac Type Severity Reaction Status Date / Time No Known Allergies Allergy Verified 07/03/25 09:50 Review of Systems Sugical H&P ROS: Negative: Constitution, Cardiovascular and Genitourinary and Yes, Specify: Gastrointestinal (Periodic right upper quadrant pain) Exam Surgical H&P Exam: Normal: Heart, Normal: Lungs and Normal: Abdomen Plan Diagnosis/Plan: Unchanged I have reviewed the history and physical and performed a pertinent physical examination on my patient. No changes have occurred unless specified. Time Spent With Patient Time: Total time managing care of this patient today ____ minutes.
[2025-07-20] MEDS: Albuterol Sulfate (0.083%) 2.5 MG/3 ML VIAL.NEB INHALE (09:20)
--- NOTE | 2025-07-20 11:09 | P.OP_ITS ---
Operative Note Operative Note Date of Service: 07/20/25 Narrative: Preop diagnosis: Symptomatic gallstones Postop diagnosis: The same Procedure: Laparoscopic cholecystectomy Surgeon: Jerry Reyes MD title i instructional assistant: VLAD Aguilar The patient is a 40-year-old female with symptomatic gallstones. She is here for laparoscopic cholecystectomy. She understood the technique of the planned procedure as well as the risks, benefits, and alternatives. She was brought to the operating room. She was placed supine under general anesthesia via endotracheal tube. The abdomen was prepped and draped in the usual sterile fashion. A surgical time-out was done. The patient received Cefotan 2 g IV preoperatively. I made a short supraumbilical incision with a blade 15. This was carried down through the full-thickness of the skin and subcutaneous fat down to the fascia. The fascia was incised. The peritoneum was entered. Through this incision a Weber port was introduced. Pneumoperitoneum was introduced to a pressure of 15 mm Hg. From here on the rest of the procedure was done under vision with the 10 mm degree scope. With laparoscopic visualization I inserted a 5/12 mm port in the epigastric area below the subcostal margin. Two 5 mm ports introduced through small stab incisions below the subcostal margin along the anterior axillary line and the midclavicular line. Graspers were placed through these working ports. The patient was placed in a head up and [id number] position The gallbladder was seen. A grasper was applied on the fundus to retract this cephalad. I was able to visualize the this has of the gallbladder. Another grasper was applied on this to retract the gallbladder laterally. The gallbladder was therefore being retracted and then cephalad and lateral fashion to put the area of the cystic duct on stretch. There was note of a distended stomach. An OG-tube was placed to decompress this and allow better visualization There was note of some thin fibrinous adhesions surrounding the anterior wall of the gallbladder which we had to take down using the [place] dissector. . I reapplied the graspers. I proceeded to gently dissect the neck of the gallbladder to clear this of fibrous and areolar tissue using Maryland dissector until I was able to identify the cystic duct. I continued to dissect the cystic duct to its confluence of the neck of the gallbladder. By doing so, we were able to achieve a critical view of the hepatocystic triangle. The cystic artery was also seen alongside this . This cystic artery was actually anterior to the cystic duct so we this 1st with 2 clips distally and the cystic artery was transected between clips with Endo scissors. With confluence of the neck of the gallbladder with the cystic duct confirmed, I proceeded to then apply clips on the cystic duct with 2 clips being applied distally. The cystic duct was transected between clips with Endo scissors Wiyth traction on the gallbladder away from the liver bed, I proceeded to then gently dissect across the hilum with electrocautery spatula. I reached the interface of the gallbladder wall and the liver bed. I incised the peritoneum of the gallbladder with electrocautery to define a plane of dissection between the gallbladder wall and the liver bed. I continued to separate the gallbladder from the liver bed along this well-defined plane of dissection using combination of blunt dissection with the tip of the spatula and electrocautery itself. We continued with dissection all the way to the fundus until the entire gallbladder was completely from the liver bed. The gallbladder was retrieved through an endobag through the umbilical incision. I reinserted all ports and re-insufflated I examined the area of dissection. This was dry and had good hemostasis. I observed all 4 quadrants and there was no other pathology. There was no evidence of any bowel injury or any bile leak . I irrigated and suctioned out the irrigant fluid. I then proceeded to desufflated the port sites. I removed all ports under vision with the laparoscope. The umbilical port was removed last. The fascia of the umbilical incision was closed with a [id number] Polysorb 0 stitch. Skin closure was achieved on all incisions using Polysorb 4-0 subcuticular running sutures All incisions were infiltrated with Marcaine 0.5% for postop analgesia. Steri- Strips and dressings were applied. The procedure was completed. The patient tolerated the procedure well. There were no immediate complications. Initial and final counts of sponges and instruments were correct. Estimated blood loss was less than 25 cc. The patient was extubated without difficulty and transferred to the recovery room with stable vital signs.
== END 2025-07-20 14:48 | disposition home or self-care (01) ==
PROVIDERS: Nurse Practitioner; PCP Internal Medicine; Visit Provider Surgery
PROC: 0FT44ZZ Resection of Gallbladder, Percutaneous Endoscopic Approach (ICD-10-PCS; CPT 47562; principal; 2025-07-20 09:50)
DX: K80.10 Calculus of gallbladder with chronic cholecystitis without obstruction (principal); K82.8 Other specified diseases of gallbladder; K31.89 Other diseases of stomach and duodenum; I10 Essential (primary) hypertension; E78.5 Hyperlipidemia, unspecified; E66.811 Obesity, class 1; Z68.32 Body mass index [BMI] 32.0-32.9, adult; R73.09 Other abnormal glucose; J98.01 Acute bronchospasm; Z79.899 Other long term (current) drug therapy; Z56.0 Unemployment, unspecified; Z87.891 Personal history of nicotine dependence
CPT/HCPCS: 47562; 43753; 81025; 88304; 94640; J1100; J1171; J1920; J2003; J2250; J2704; J2710; J2795; J3010

== ENCOUNTER → 2025-07-20 07:28 | Outpatient (BNV) | payer BC, SELFPAY | PROVIDERS: PCP Internal Medicine; Visit Provider Surgery | DX: K80.10 Calculus of gallbladder with chronic cholecystitis without obstruction (principal) | CPT/HCPCS: 47562 ==

== ENCOUNTER 2025-08-02 08:39 | Outpatient (AMB) | payer BC, SELFPAY ==
--- NOTE | 2025-08-02 08:41 | MHC.OFFVIS ---
Vital Signs 08/02/25 08:49 Height 4 ft 10 in Weight 156 lb BMI 32.6 BP 128/88 Intake Visit Reasons: New patient Annual Intake Note: Per patient no concerns, no pap smear 5+years, normal hx. 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 Hand Sewer concerns: none. CT scan in April revealed functional cyst consistent was CLC. Recent cholecystectomy. Regular monthly menses x3 days. Currently is sexually active with spouse, history of vasectomy. She denies vaginal itching or irritation. STI screening offered; she accepts, declines lab work. She tries to eat healthy and stays active with exercise. Denies family history of ovarian or colon cancer. Family history of breast cancer-maternal grandmother. Last pap smear over 5 years ago, negative. Mammogram: Not up-to-date. [facility] Medical History History of contraception Encounter for well woman exam with routine gynecological exam Bronchospasm (07/03/25) GERD (gastroesophageal reflux disease) Gallstones Weight gain Stress Obesity, Class I, BMI 30-34.9 Hyperlipidemia HTN (hypertension) Elevated glucose Surgical History Hx of cholecystectomy Hx of tonsillectomy Family History Father Hx of CABG Maternal Grandmother Breast cancer Maternal Grandmother Lung cancer Maternal Grandfather Lung cancer Social History (Updated 08/02/25 @ 09:02 by Nayana Braswell CNM) Household Members: Spouse Housing: House (spouse) Are you a primary senior care manager to a significant other at home: No Do you presently have visiting nurse or other home services: No 75 years or older and lives alone: No Alcohol intake: current Alcohol intake frequency: a few times a month Alcohol type: beer, wine and hard liquor Patient Tobacco Use Status: Former Tobacco user Tobacco use type: Cigarette e-Cigarette/Vaping Use: Never Used Substance Use Type: Marijuana service: No Current occupational status: employed 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 Cognitive needs: No Hearing needs: No Vision needs: No Female Reproductive History Menstrual Age of Menarche: 13 Duration of menses: <3 days Date of last menstrual period: 07/23/25 control method: none Total pregnancies: 0 History of abnormal pap smear: No Review of Systems Const All systems reviewed & are unremarkable except as noted in HPI and below Reports as per HPI Eyes Reports no additional complaints ENT Reports no additional complaints Card Reports no additional complaints Resp Reports no additional complaints GI Reports as per HPI and Reports no additional complaints Reports as per HPI Musc Reports no additional complaints Skin/Breast Reports as per HPI Neuro Reports no additional complaints Psych Reports no additional complaints Endo Reports no additional complaints Rakesh/Lymph Reports no additional complaints Aller/Immun Reports no additional complaints Physical Exam Vital Signs: Last Vital Signs BP 128/88 08/02/25 08:49 BMI result Body Mass Index 32.6 Const General: cooperative, healthy appearing, no acute distress, well developed and alert Orientation/consciousness: patient oriented x3 HEENT Head: Yes normal to inspection Eyes General: appearance normal, both eyes and all related structures Neck Neck: Yes normal visual inspection Thyroid: Thyroid normal Chest Chest palpation & inspection: normal inspection of the chest and other (no puckering, dimpling, peau de orange, retraction, discharge, masses) Breast/axilla inspection: normal inspection of the breasts Breast/axilla palpation: normal palpation of the breasts Resp Effort & Inspection: normal respiratory effort GI Inspection: Yes normal to inspection and Yes scar Palpation (GI): Soft to palpation Rectal Exam - Female: deferred Other: inclusion cyst mons area-not inflamed General: Yes bladder normal to palpation External Female Exam: normal external appearance and normal appearance of the urethra Speculum Exam - Vagina: normal appearance of the vagina, normal palpation and normal vaginal discharge Speculum Exam - Cervix: normal appearance of the cervix and normal palpation Bimanual exam- vagina & uterus: normal bimanual exam, normal palpation, uterine size normal, bladder normal to palpation, normal palpation and non-tender Bimanual Exam- Adnexa, other: no masses Skin General skin exam: no rashes or lesions noted Rashes: no rashes Neuro General: patient oriented x3 Cognition (Neuro): normal cognition Extrem General: Yes normal to inspection Psych Attitude: cooperative Thought process: Normal thought process present Assessment & Plan Assessment & Plan (1) Encounter for well woman exam with routine gynecological exam: Code(s): Z01.419 - Encounter for gynecological examination (general) (routine) without abnormal findings Category: Medical Plan: Discussed: Current recommendations for pap smears per ASCCP guidelines. Pap obtained today. Breast awareness and periodic breast exams. Mammogram ordered. Maintain a healthy lifestyle including a well balanced diet and routine exercise. Discussed normal skin changes, inclusion cyst, sebaceous glands, current findings do not require treatment, if becomes inflamed or infected and not resolve with warm compresses would need to have a evaluation for treatment. Monitor menstrual cycles, report any unscheduled bleeding, bleeding episodes <24 days apart or heavy/prolonged menstrual bleeding. Call the office for a follow up for any concerns. Patient verbalizes understanding and agrees to the plan of care. She was given opportunity to ask questions and all questions were answered to the best of my ability. RTO in one year for annual timber repairer examination. This note is constructed using voice recognition software. While every effort has been made to ensure accuracy, hot dip tinning supervisor errors may have been included. (2) Possible exposure to STD: Code(s): Z20.2 - Contact with and (suspected) exposure to infections with a predominantly sexual mode of transmission Plan GC chlamydia and BV panel obtained, await results for final plan of care. Orders: Orders MM tomosynthesis screening BI Today Z12.31 - Encounter for screening mammogram for malignant neoplasm of breast CT NG by PCR Vag/Cerv Today E78.2 - Mixed hyperlipidemia, Z11.3 - Encounter for screening for infections with a predominantly sexual mode of transmission Bacterial Vaginosis Panel Today Z11.3 - Encounter for screening for infections with a predominantly sexual mode of transmission Pap Smear Today Z01.419 - Encounter for gynecological examination (general) (routine) without abnormal findings Coding Level of Care Code New Pt Prev Care 40-64y(08186) Diagnoses Encounter for well woman exam with routine gynecological exam Z01.419 Possible exposure to STD Z20.2
[2025-08-02 08:49] VITALS: BP 128/88; BMI 32.6
== END 2025-08-02 09:48 | disposition home or self-care (01) ==
LOC: HO.HWS 08:40
PROVIDERS: PCP Internal Medicine; Visit Provider Advanced Practice Midwife
DX: Z01.419 Encounter for gynecological examination (general) (routine) without abnormal findings (principal); Z20.2 Contact with and (suspected) exposure to infections with a predominantly sexual mode of transmission
CPT/HCPCS: 99386; 99459

== ENCOUNTER 2025-08-02 08:39 | Outpatient (REF) | payer BC, SELFPAY ==
[2025-08-02 18:24] LABS: CT PCR NOT DETECTED (Not Detect.); NG PCR NOT DETECTED (Not Detect.)
[2025-08-02 22:29] LABS: Bacterial Vaginosis PCR NEGATIVE (Negative); Candida Group PCR NOT DETECTED (Not Detect); Candida glab krusei PCR NOT DETECTED (Not Detect); Trichomonas vaginalis PCR NOT DETECTED (Not Detect)
== END 2025-08-02 08:40 | disposition home or self-care (01) ==
LOC: HO.LNP 08:39
PROVIDERS: PCP Internal Medicine; Visit Provider Advanced Practice Midwife
DX: Z01.419 Encounter for gynecological examination (general) (routine) without abnormal findings (principal); Z47.89 Encounter for other orthopedic aftercare; Z12.31 Encounter for screening mammogram for malignant neoplasm of breast; Z11.3 Encounter for screening for infections with a predominantly sexual mode of transmission; Z11.8 Encounter for screening for other infectious and parasitic diseases; E78.2 Mixed hyperlipidemia; Z20.2 Contact with and (suspected) exposure to infections with a predominantly sexual mode of transmission; Z90.49 Acquired absence of other specified parts of digestive tract
CPT/HCPCS: 81515; 87491; 87591; 87626; 88175

== ENCOUNTER 2025-08-02 10:28 | Outpatient (AMB) | payer BC, SELFPAY ==
--- NOTE | 2025-08-02 10:29 | MHC.OFFVIS ---
Vital Signs 08/02/25 10:40 Height 4 ft 10 in Weight 155 lb 2 oz BMI 32.4 BP 172/85 H Blood Pressure Location Lt brachial Position Sitting Pulse 118 H Intake Visit Reasons: s/p lap/dionne Intake Note: Patient is seen in office for post op assessment post laparoscopic cholecystectomy. Pt c/o: admits to sore and tender, denies any other concerns Criminal Justice Instructor Required: No Allergies No Known Allergies Allergy (Verified 08/02/25 08:46) HPI HPI s/p lap/dionne: Details: 40 year old female who underwent laparoscopic cholecystectomy with Dr. Reyes on 07/20/25 for symptomatic gallstones. She tolerated the procedure well. She reports having some difficulty with pain and nausea the first week and overall feeling rundown. The pain has signififcantly improved but she is still taking percocet as needed. She normally takes one in the morning and then at night. She reports having diarrhea after eating which has just started to improve. She had a normal BM yesterday. She is beginning to feel back to baseline overall. She denies fevers, chills, constipation, changes in skin color. She is asking about using scar tape on her incisions. [facility] Medical History History of contraception Encounter for well woman exam with routine gynecological exam Bronchospasm (07/03/25) GERD (gastroesophageal reflux disease) Gallstones Weight gain Stress Obesity, Class I, BMI 30-34.9 Hyperlipidemia HTN (hypertension) Elevated glucose Surgical History Hx of cholecystectomy Hx of tonsillectomy Family History Father Hx of CABG Maternal Grandmother Breast cancer Maternal Grandmother Lung cancer Maternal Grandfather Lung cancer Social History (Updated 08/02/25 @ 09:02 by Nayana Braswell CNM) Household Members: Spouse Housing: House (spouse) Are you a primary school childcare attendant to a significant other at home: No Do you presently have visiting nurse or other home services: No 75 years or older and lives alone: No Alcohol intake: current Alcohol intake frequency: a few times a month Alcohol type: beer, wine and hard liquor Patient Tobacco Use Status: Former Tobacco user Tobacco use type: Cigarette e-Cigarette/Vaping Use: Never Used Substance Use Type: Marijuana service: No Current occupational status: employed 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 Cognitive needs: No Hearing needs: No Vision needs: No Female Reproductive History Menstrual Age of Menarche: 13 Review of Systems Const All systems reviewed & are unremarkable except as noted in HPI and below Physical Exam Const General: comfortable, no acute distress and alert Orientation/consciousness: patient oriented x3 Resp Effort & Inspection: normal respiratory effort and able to speak in complete sentences Cardio Other: pulse rechecked in room and was 74 GI Other: epigastric and two right lateral abdominal incisions well healed, no surrounding erythema or edema umbilical incision with small scab superiorly with very faint erythema Inspection: No distended Palpation (GI): Soft to palpation, Tenderness to palpation present (GI) (mild incisional) and no guarding Percussion: Yes normal to percussion Skin General skin exam: no rashes or lesions noted and no jaundice Neuro General: patient oriented x3 and moves all extremities Results Reviewed Results Reviewed: Gallbladder, cholecystectomy: Chronic cholecystitis, cholesterolosis and cholelithiasis Assessment & Plan Assessment & Plan (1) S/P laparoscopic cholecystectomy: Code(s): Z90.49 - Acquired absence of other specified parts of digestive tract Category: Surgical Plan 40 year old female who underwent laparoscopic cholecystectomy with Dr. Reyes on 07/20/25 for symptomatic gallstones. She is overall doing well post operatively but still having some incisional pain which I explained is expected at this point. HR rechecked in room and was normal rate. She is clinically appearing well and her abdomen is benign. Her incisions are almost all healed, umbilical incision with small amount of scabbing, no current concern for infection. Educated her to hold off any applying anything topical to her umbilical incision until it is completely healed. Continue no heavy lifting for 2 more weeks and then can gradually resume activities as tolerated. She is to follow up in 1 month. Discussed returning sooner if she develops concerns. Coding Level of Care Code Global (34551) Diagnoses S/P laparoscopic cholecystectomy Z90.49
[2025-08-02 10:40] VITALS: BP 172/85; PULSE 118; BMI 32.4
== END 2025-08-02 10:51 | disposition home or self-care (01) ==
LOC: HO.HGS 10:29
PROVIDERS: PCP Internal Medicine; Visit Provider Physician Assistant Surgical
DX: Z90.49 Acquired absence of other specified parts of digestive tract (principal)
CPT/HCPCS: 99024

== ENCOUNTER 2025-10-19 14:56 | Outpatient (AMB) | payer BC, SELFPAY ==
--- NOTE | 2025-10-19 15:05 | MHC.PC.OV ---
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 Blood pressure is well controlled. Denies headaches, dizziness, vision change. Denies lower extremity swelling BH: Anxiety is well controlled. On propranolol as needed for social anxiety. Has to use lorazepam sometimes at night to sleep but does not sustain sleep, temazepam has been working for this Recurrent issues with frequent ear infections, pressure. 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 She did not want to follow up with genetic Obesity: had lost some weight with phentermine but stalled. Still in obese range with BMI 32.8. HTN, HLD. Failed diet and exercise ROS see HPI PHYSICAL EXAM: GENERAL: Alert and oriented x 3. NAD EYES: EOMI. Anicteric. HENT: Moist mucous membranes. No scleral icterus. No cervical lymphadenopathy. LUNGS: Clear to auscultation bilaterally. CARDIOVASCULAR: Regular rate and rhythm. No murmur. No JVD. ABDOMEN: Soft, non-tender +bs EXTREMITIES: No edema. Non-tender. SKIN: No rashes or lesions. Warm. NEUROLOGIC: No focal neurological deficits. CN II-XII grossly intact PSYCHIATRIC: Cooperative. Appropriate mood and affect [facility] Medical History (Updated 10/20/25 @ 09:21 by Tracie Clinton MD) History of contraception Encounter for well woman exam with routine gynecological exam Bronchospasm (07/03/25) GERD (gastroesophageal reflux disease) Gallstones Weight gain Stress Obesity, Class I, BMI 30-34.9 Hyperlipidemia HTN (hypertension) Elevated glucose Surgical History (Updated 09/14/25 @ 14:52 by AKHIL Yan) Hx of cholecystectomy (~07/20/25) Hx of tonsillectomy Family History Father Hx of CABG Maternal Grandmother Breast cancer Maternal Grandmother Lung cancer Maternal Grandfather Lung cancer Social History Household Members: Spouse Housing: House (spouse) Are you a primary weekend caregiver to a significant other at home: No Do you presently have visiting nurse or other home services: No 75 years or older and lives alone: No Alcohol intake: current Alcohol intake frequency: a few times a month Alcohol type: beer, wine and hard liquor Patient Tobacco Use Status: Former Tobacco user Tobacco use type: Cigarette e-Cigarette/Vaping Use: Never Used Substance Use Type: Marijuana service: No Current occupational status: employed 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 Cognitive needs: No Hearing needs: No Vision needs: No Female Reproductive History Menstrual Age of Menarche: 13 Questionnaire Thrive Questionnaire Date Thrive assessed: 12/03/24 I am a: Patient What is your living situation today?: I have a steady place to live Within the past 12 months, did the food you bought not last and you didn't have the money to get more?: Never true Within the past 12 months, did you worry whether your food would run out before you got money to buy more?: Never true Do you have trouble paying for medicines?: No Do you have trouble getting transportation to medical appointments?: No Do you have trouble paying your heating and electricity bill?: No Do you have trouble taking care of your child, family member or friend?: No Do you have trouble with day-to-day activities such as bathing, preparing meals, shopping, managing finances, etc.?: No Are you currently unemployed and looking for a job?: No Are you interested in more education?: No Please select the resources that you would like help with: None Currently or been in a relationship where the following occur: No concerns reported THRIVE Score: 0 AUDIT C Alcohol Use Questionnaire (AUDIT-C) 1. How often do you have a drink containing alcohol?: 2-3 times a week 2. How many drinks containing alcohol do you have on a typical day when you are drinking?: 1 or 2 3. How often do you have six or more drinks on one occasion?: Never Total Score: 3 SPENCER-7 AMB Questionnaire SPENCER-7 Date SPENCER - 7 assessed: 06/02/24 Source: Developed by Drs. Keith Sloan, Constance Mauro, Mark Cedeño and colleagues, with an educational briana from [employer]. Physical exam (Primary Care) Vital Signs: Last Vital Signs Pulse 97 10/19/25 15:06 Resp 14 10/19/25 15:06 BP 134/84 10/19/25 15:06 Pulse Ox 98 10/19/25 15:06 Oxygen Delivery Method Room Air 10/19/25 15:06 BMI result Body Mass Index 32.8 Tobacco/Smoking Status: Tobacco use Status Tobacco use date assessed 10/19/25 10/19/25 15:12 Patient Tobacco Use Status Former Tobacco user 10/19/25 15:12 Tobacco use type Cigarette 10/19/25 15:12 e-Cigarette/Vaping Use Never Used 10/19/25 15:12 Thrive Assessment: Date of Thrive Assessment Date Thrive assessed 12/03/24 10/19/25 15:12 Currently or been in a relationship where the following occur: No concerns reported Coding Level of Care Code Est Pt Level 4 (58134) Diagnoses Obesity, Class I, BMI 30-34.9 E66.9 Primary hypertension I10 Hypertension type: primary hypertension Mixed hyperlipidemia E78.2 Hyperlipidemia type: mixed hyperlipidemia Anxiety F41.9 Primary insomnia F51.01 Insomnia type: primary Assessment & Plan Assessment & Plan (1) Obesity, Class I, BMI 30-34.9: Code(s): E66.9 - Obesity, unspecified Category: Medical (2) HTN (hypertension): Code(s): I10 - Essential (primary) hypertension Category: Medical Qualifiers: Hypertension type: primary hypertension Qualified Code(s): I10 - Essential (primary) hypertension (3) Hyperlipidemia: Code(s): E78.5 - Hyperlipidemia, unspecified Category: Medical Qualifiers: Hyperlipidemia type: mixed hyperlipidemia Qualified Code(s): E78.2 - Mixed hyperlipidemia (4) Anxiety: Code(s): F41.9 - Anxiety disorder, unspecified Category: Medical (5) Insomnia: Code(s): G47.00 - Insomnia, unspecified Category: Medical Qualifiers: Insomnia type: primary Qualified Code(s): F51.01 - Primary insomnia Plan 40 year old presenting for follow up HTN well controlled on medications Obesity with hld, htn-recommend GLP-1 agonist Anxiety/Insomnia-stable on current medications Medications: New Zepbound (tirzepatide (weight loss)) for 4 weeks 2.5 mg (0.5 mL) subcut QWEEK 6 mL 1RF NS E66.9 - Obesity, unspecified, E78.2 - Mixed hyperlipidemia, I10 - Essential (primary) hypertension, R73.09 - Other abnormal glucose Refilled omeprazole 20 mg PO DAILY 90 caps 3RF nifedipine ER 60 mg PO DAILY 90 tabs 3RF propranolol 10 mg PO TID PRN 90 tabs 3RF social anxiety temazepam 15 mg (2 x 7.5 mg) PO BEDTIME PRN 180 caps 3RF sleep lorazepam 1 mg PO DAILY PRN 30 tabs 0RF anxiety 30 days phentermine 15 mg PO BID 60 caps 3RF
[2025-10-19 15:06] VITALS: BP 134/84; PULSE 97; RESP 14; O2SAT 98; BMI 32.8
== END 2025-10-19 16:36 | disposition home or self-care (01) ==
LOC: HO.HMCFM 14:57
PROVIDERS: PCP Internal Medicine; Visit Provider Internal Medicine
DX: I10 Essential (primary) hypertension (principal); E66.9 Obesity, unspecified; Z68.32 Body mass index [BMI] 32.0-32.9, adult; E78.2 Mixed hyperlipidemia; F41.9 Anxiety disorder, unspecified; F51.01 Primary insomnia